=== PATIENT | female | born 1990 | race Hispanic/Latino ===

== ENCOUNTER 2019-06-12 12:30 | Observation (INO) | payer OTHER, SELFPAY ==
[2019-06-12] VITALS (14 sets, daily range): BP systolic 118–132; BP diastolic 65–76; PULSE 62–107; O2SAT 99–100; BMI 35.4
[2019-06-12 13:32] LABS: Add Urine Microscopic? YES; Appearance Urine Clear (Clear); Bacteria Urine 2+ /hpf; Bilirubin Urine Negative (Negative); Blood Urine Negative (Negative); Color Urine Straw (Yellow); Glucose Urine UA Negative (Negative); Ketones Urine Negative (Negative); Leukocyte Esterase Ur 2+ LEU/UL (Negative); Mucus Urine Rare /lpf; Nitrate Urine Negative (Negative); Protein Urine Negative (Negative); RBC Urine 0-2 /hpf (0-2); Squamous Epithelial Cell Urine Few /hpf (Few); Urobilinogen Urine Negative mg/dL (<2.0); WBC Urine 0-3 /hpf
[2019-06-12] MEDS: TERBUTALINE SULFATE 1 MG/ML VIAL 0.25 MG SUB-Q (13:50)
--- NOTE | 2019-06-12 14:20 | OBADM ---
This patient, Destinee Alexander, admitted to the OB room OB Post 113 for observation. Patient/family oriented to hospital policies and general routines including ID bracelet, bed and alarms, visiting hours, pain management, procedures, bathroom and other care routines, personal items, smoking policy, room service/diet, and visiting hours. Patient/Family are encouraged to report perceived risks to care and to ask questions if they do not understand what they are told or what they should do.
--- NOTE | 2019-06-23 09:28 | PM.OBTRLD ---
OB - Triage/Final Diagnosis Visit Information Reason for evaluation: other (back pain) Evaluation Laboratory results: Laboratory Tests 06/12/19 13:23 Urine Color Straw Urine Appearance Clear Urine pH 7.0 Ur Specific [place] 1.010 Urine Protein Negative Urine Glucose (UA) Negative Urine Ketones Negative Ur Blood (Man) Negative Urine Nitrate Negative Urine Bilirubin Negative Urine Urobilinogen Negative Leukocyte Esterase Rfl 2+ H Urine RBC 0-2 Urine WBC 0-3 Ur Squamous Epith Cells Few Urine Bacteria 2+ H Urine Mucus Rare
== END 2019-06-12 14:55 | disposition home or self-care (01) ==
PROVIDERS: Admitting Provider Obstetrics & Gynecology Gynecology; Visit Provider Obstetrics & Gynecology Gynecology
DX: O99.89 Other specified diseases and conditions complicating pregnancy, childbirth and the puerperium (principal); M54.9 Dorsalgia, unspecified; Z3A.34 34 weeks gestation of pregnancy
CPT/HCPCS: 81001; 96372; G0378; G0379; J3105

== ENCOUNTER 2019-07-07 09:37 | Inpatient (IN) | payer OTHER, SELFPAY ==
[2019-06-23 14:35] VITALS: BMI 35.7
[2019-07-07] VITALS (63 sets, daily range): BP systolic 119–158; BP diastolic 58–96; PULSE 60–88; RESP 18; TEMP 36.6–37.1; O2SAT 99–100
[2019-07-07 10:12] LABS: Basophils Percent Auto 0.5 % (0.2-1.2); Eosinophils Absolute Auto 0.1 K/mm3 (0-0.3); Eosinophils Percent Auto 0.8 % (0-4.4); Hemoglobin 13.2 g/dL (12.0-15.0); Immature Granulocyte Absolute 0.03 K/mm3 (0.00-0.031); Immature Granulocyte Percent A 0.3 % (0-0.5); Lymphocytes Absolute Auto 2.05 K/mm3 (0.9-3.2); Lymphocytes Percent Auto 23.3 % (18.3-44.2); Mean Corpuscular HGB Conc 33.8 g/dl (32-36); Mean Corpuscular Hemoglobin 29.5 pg (26-34); Mean Corpuscular Volume 87.2 fl (80-100); Mean Platelet Volume 11.6 fl (7.4-10.4); Monocytes Absolute Auto 0.6 K/mm3 (0.1-0.6); Monocytes Percent Auto 6.9 % (2.6-8.5); Neutrophils Percent Auto 68.2 % (45.5-73.1); Platelet Count Result 245 k/mm3 (150-375); Red Blood Count 4.47 M/mm3 (4.2-5.4); Red Cell Distribution Width 13.3 % (11.5-14.5); White Blood Count 8.8 K/mm3 (4.5-10.0)
[2019-07-07] MEDS: OXYTOCIN 30 UNITS/NS 500 ML 30 UNITS/500 ML BAG IV CONT (11:02)
[2019-07-07] MEDS: LACTATED RINGERS 1,000 ML 125 ML IV CONT ×2 (11:02→15:05)
--- NOTE | 2019-07-07 11:19 | LDADM ---
This patient, Destinee Alexander, was admitted to Labor/Delivery/Recovery 106 on 07/07/19 at 09:37. Plans for labor, pain management and were discussed with patient. Patient/family oriented to hospital policies and general routines including ID bracelet, bed and alarms, visiting hours, pain management, procedures, bathroom and other care routines, personal items, smoking policy, room service/diet and guest tray routines, security routines, and visiting hours. Patient/Family are encouraged to report perceived risks to care and to ask questions if they do not understand what they are told or what they should do. See OBIX for further documentation.
--- NOTE | 2019-07-07 15:16 | WPDANESEPPF ---
Anes - Initial Pre Proc Eval Date/Time: 07/07/19 15:16 Surgeon: Gogo Miranda MD Pre Op Diagnosis: Rupture of membrane Patient Data Age: 28 Gender: F Height: 5 ft Weight: 83 kg Last Vital Signs Temp 36.9 C 07/07/19 14:58 Pulse 65 07/07/19 15:15 BP 140/78 07/07/19 15:15 Pulse Ox 100 07/07/19 15:13 Allergies Allergy/AdvReac Type Severity Reaction Status Date / Time No Known Allergies Allergy Unverified 01/09/19 00:35 Home Medications Medication Instructions Recorded Confirmed Type PNV cmb#95-ferrous fumarate-FA 1 tablet PO DAILY 06/12/19 06/23/19 History [] ergocalciferol (vitamin D2) 1 unit PO USEASDIRECTD 3 Days #0 06/12/19 06/23/19 Rx [Vitamin D2] cap Laboratory Tests 07/07/19 07/07/19 07/07/19 10:00 10:00 10:00 WBC 8.8 K/mm3 K/mm3 (4.5-10.0) RBC 4.47 M/mm3 M/mm3 (4.2-5.4) Hgb 13.2 g/dL g/dL (12.0-15.0) Hct 39.0 % % (37.0-47.0) MCV 87.2 fl fl (80-100) MCH 29.5 pg pg (26-34) MCHC 33.8 g/dl g/dl (32-36) RDW 13.3 % % (11.5-14.5) Plt Count 245 k/mm3 k/mm3 (150-375) MPV 11.6 fl H fl (7.4-10.4) Immature Gran % (Auto) 0.3 % % (0-0.5) Neut % (Auto) 68.2 % % (45.5-73.1) Lymph % (Auto) 23.3 % % (18.3-44.2) [place] % (Auto) 6.9 % % (2.6-8.5) Eos % (Auto) 0.8 % % (0-4.4) Baso % (Auto) 0.5 % % (0.2-1.2) Lymph # (Auto) 2.05 K/mm3 K/mm3 (0.9-3.2) [place] # (Auto) 0.6 K/mm3 K/mm3 (0.1-0.6) Eos # (Auto) 0.1 K/mm3 K/mm3 (0-0.3) Baso # (Auto) 0.0 K/mm3 K/mm3 (0.0-0.1) Abs Immat Gran (auto) 0.03 K/mm3 K/mm3 (0.00-0.031) Absolute Neuts (auto) 6.0 K/mm3 K/mm3 (1.3-6.7) Absolute Nucleated RBC 0.0 K/mm3 K/mm3 (0.0-0.012) Nucleated RBC % 0.0 % % (0.0-0.2) RPR Pending Blood Type O Positive Antibody Screen Negative Patient hx anesthesia problems: none Family hx anesthesia problems: none PMFSH Family History Family History Grandparent Acute myocardial infarction Mother Diabetes mellitus Social History Social History Smoking status: Never smoker Substance use: never Gender identity (if verbalized by the patient): Female Spiritual care concerns: No Anes - Eval Final PreProcedure Day of Procedure 07/07/19 15:16 Patient weight: obese Heart: regular rate and rhythm Lungs: clear to auscultation Neurological: alert and oriented ASA classification: II Emergent: no Anesthetic plan: proceed Anesthesia type and monitoring: regional epidural and standard monitoring Informed Consent: The patient's anesthetic plan and its attendant risks and benefits were discussed with the patient/family/POA. Questions were solicited and answers provided to the satisfaction of the patient/family/POA.
--- NOTE | 2019-07-07 18:18 | PM.OBPRVD ---
OB - Delivery Note Procedure events: Labor Augmentation Intrapartal events: None Delivery augmentation: pitocin Delivery monitor: external FHT and external uterine Route of delivery: Laceration description: None Specimen: No Estimated blood loss (mL): 200 Anesthesia type: Epidural Disposition: floor [place] Baby Date of : 07/07/19 Time of : 18:08 Weeks of gestation at delivery: 38 gender: Female Weight (pounds): 6 Weight (ounces): 8 presentation: vertex position: Left Occiput Anterior Placenta delivery description: Spontaneous cord vessel description: 3 Vessels score one minute: 8 score five minutes: 9
[2019-07-07] MEDS: OXYTOCIN 30 UNITS/NS 500 ML 30 UNITS/500 ML BAG 125 UNITS IV CONT (18:39)
[2019-07-07] MEDS: IBUPROFEN 600 MG TABLET PO (20:17)
--- NOTE | 2019-07-07 20:32 | PC.NURSE ---
Patient transferred in wheelchair to post room 292. Support person present. Oriented to unit, room, information board, rooming in, admission packet and security measures. Patient verbalizes understanding.
[2019-07-07] MEDS: ACETAMINOPHEN 325 MG TABLET 650 MG PO (21:20)
[2019-07-08 05:07] LABS: Hematocrit 32.4 % (37.0-47.0); Hemoglobin 10.9 g/dL (12.0-15.0)
--- NOTE | 2019-07-08 06:44 | WPDOBADMIT ---
Obstetrics - Admit Note Admission Note: record reviewed. No pertinent additions to the history and/or any subsequent changes in the physical findings that are not consistent with the expected course of the were found. Additions to the history and/or subsequent changes in the physical findings follow. Patient admitted 07/06 with SROM. She was augmented and progressed to 5-6 cm. At approx 5 pm, I saw the patient at request of RN due to run of late decels that required the pitocin to be temporarily stopped but noted to have large BBOW. I AROM the forebag. FHTs at that time were reactive and the pitocin had been restarted. The patient care was then turned over to Dr. Fuentes for call night. Patient aware that Dr. Fuentes was taking over.
--- NOTE | 2019-07-08 07:48 | PM.OBPNVD ---
OB - PN: Subj Subjective Date/time seen: 07/08/19 07:48 Patient comments: no complaints and pain well controlled baby status: doing well OB - PN: Obj Data Labs CBC & Chem 7: 07/08/19 04:59 Labs: Laboratory Results - last 24 hr 07/07/19 07/07/19 07/08/19 10:00 10:00 04:59 WBC 8.8 RBC 4.47 Hgb 13.2 10.9 L Hct 39.0 32.4 L MCV 87.2 MCH 29.5 MCHC 33.8 RDW 13.3 Plt Count 245 MPV 11.6 H Immature Gran % (Auto) 0.3 Neut % (Auto) 68.2 Lymph % (Auto) 23.3 [place] % (Auto) 6.9 Eos % (Auto) 0.8 Baso % (Auto) 0.5 Lymph # (Auto) 2.05 [place] # (Auto) 0.6 Eos # (Auto) 0.1 Baso # (Auto) 0.0 Abs Immat Gran (auto) 0.03 Absolute Neuts (auto) 6.0 Absolute Nucleated RBC 0.0 Nucleated RBC % 0.0 Blood Type O Positive Antibody Screen Negative OB - PN A/P Plan day: 1 Plan: routine care, discharge home and follow up 6 weeks Comments: plan pop Time Spent With Patient Time: Total time spent is greater than 50% in coordination of care (as documented) at patient's floor/unit and/or counseling patient: Exam : Bimanual exam- vagina & uterus: other (Uterus firm, nt @U)
[2019-07-08 08:25] VITALS: BP 115/61; PULSE 63; RESP 18; TEMP 37.1; O2SAT 99
--- NOTE | 2019-07-08 08:47 | WPDANLDPN2 ---
Anes-Prog Note L&D Date/Time: 07/08/19 08:47 Comfortable throughout: labor and delivery Neuraxial method: epidural Epidural/Spinal procedure site: clean & non-tender Neuro status: Neuro function grossly intact. Cardiovascular status: normal Respiratory status: normal Airway patency: baseline Mental status: baseline Post-Op hydration status: normal Vital Signs: Last Vital Signs Temp 37.1 C 07/07/19 20:40 Pulse 65 07/07/19 20:40 Resp 18 07/07/19 20:40 BP 132/79 07/07/19 20:40 Pulse Ox 99 07/07/19 20:40 I/O: Intake & Output 07/07/19 07/08/19 07/08/19 23:59 07:59 15:59 Intake Total 500 Balance 500 Patient feedback: Patient satisfied with anesthetic care.
[2019-07-08] MEDS: ACETAMINOPHEN 325 MG TABLET 650 MG PO ×2 (09:06→18:01)
[2019-07-08] MEDS: MULTIVIT/MIN/PREN/FOL AC/IRON TABLET 1 TAB PO (09:06)
[2019-07-08] MEDS: DOCUSATE SODIUM 100 MG CAPSULE PO (09:06)
--- NOTE | 2019-07-08 09:15 | PC.NURSE ---
Consulted with patient, mother reports she breast/bottle fed last child. She plans are to breastfeed/bottle this child. Reviewed infant feeding cues, frequencies, duration of feedings, feeding elimination flow sheet, and signs of adequate intake. Demonstrated stimulation techniques to wake infant for feeding. Assisted with infant to breast. Reviewed positioning/alignment in cross cradle, holding breast in U hold and guided asymmetrical latch on. Discussed the rational for each. Within a few attempts was able to latch correctly. Infant nursed eagerly, with steady draws and frequent swallowing noted. Reviewed signs of a correct latch, effective nursing and suck swallow ratio. Infant was able to maintain latch without discomfort to mother. Nipple care reviewed. Stressed the importance of regular stimulation for milk supply, suggested to put to breast each feeding then supplement. Once milk is in should be satisfied with milk supply and take less of bottle then refuse, filling with breast. Mother states she wishes to not breastfeed at times and bottle, suggested to pump to replace stimulation and empty breast. Reviewed adequate signs of breastmilk intake. Instructed mother to call out for RN assistance if she is unable to latch infant for feeding or she has discomfort with nursing. Instructed feeding should be initiated three hours from start of last feeding or if feeding cues are noted before. Mother voiced understanding of information shared.
[2019-07-08 16:06] LABS: Rapid Plasma Reagin Non-Reactive (NonReactive)
[2019-07-08] MEDS: DIBUCAINE 1% OINTMENT 30 GM TUBE 1 APPLIC TOPICAL (16:13)
[2019-07-09 10:35] VITALS: BP 125/70; PULSE 57; RESP 20; TEMP 36.9
--- NOTE | 2019-08-04 10:29 | PM.OBDSVD ---
DS: Diagnosis Admitting Diagnosis Admitting Diagnosis: Encounter for supervision of normal , unspecified, third trimester Discharge Diagnosis (1) (normal spontaneous vaginal delivery): Code(s): O80 - Encounter for full-term uncomplicated delivery Status: Acute OB - DS: Summary OB Procedures : Ultrasound OB Procedures Intrapartum: Spontaneous Vag Delivery OB Procedures: : None Peripartum Data Delivery Method: Natural Vaginal Laceration description: Perineal - 1st Degree Status at Discharge Functional status at discharge: independent ambulation Overall status at discharge: patient is progressing back to baseline Time Spent with Patient Time attestation: Total time spent providing and/or coordinating discharge services: Exam Const: Orientation/consciousness: patient oriented x3 GI: GI Palp: Yes Soft to palpation Discharge Plan Discharge Attending physician on discharge: Keith Fuentes Consulting providers: Kaushal Martinez Discharging Clinician: Gogo Miranda Anticipated Discharge Date/Time: 07/08/19 19:49 Patient Disposition: Home, Self-Care Activity: may shower and pelvic rest Diet: regular Discharge Instructions: Education: Mom and Baby Guide Given to: Mother Follow-Up: Call your delivering provider's office for an appointment to be seen in: 6 Weeks Mom and baby should come to the [facility] for the follow-up appointment. Appointment Date/Time: July 09, 2019 at 11:00 am What to expect at your follow-up visit: Blood Pressure Check Physical Assessment Call [phone] if you are unable to keep your appointment time. BREAST CARE: 1. Wear a snug supportive bra. 2. For engorgement discomfort: Breast Feeding: A. Apply warm moist washcloths B. Express milk as needed to relieve engorgement C. Wear loose clothing Bottle Feeding: A. May apply ice packs 3. For sore nipples: A. Identify correct latch-on B. Apply warm moist washcloths before and after nursing C. Air dry nipples after nursing D. May apply Lansinoh cream to nipples PERINEAL CARE: 1. Until bleeding stops, use your boaz bottle after urinating 2. Change your pad frequently throughout the day 3. You may take sitz baths several times a day (fill your bathtub with warm water and soak for 20 minutes.) Do NOT bathe in the water 4. No tub baths until seen by your physician - You may shower ACTIVITY: 1. Rest as much as possible. 2. Do not exercise or lift anything heavier than your baby (such as laundry or other children.) 3. Avoid stairs or driving as much as possible. 4. Do not put anything into the vagina. No douching, tampons, or sexual activity until seen by physician. NOTIFY PHYSICIAN IF YOU HAVE ANY QUESTIONS OR IF ANY OF THE FOLLOWING SYMPTOMS OCCUR: 1. If your perineum becomes red, swollen, or more painful than what you have experienced in the hospital. 2. If your vaginal bleeding becomes foul smelling. 3. If your vaginal bleeding becomes more heavy than a period or if your bleeding changes from pink to bright red. However, you may pass an occasional walnut-sized clot once or twice for the first week . 4. If you experience a sharp, shooting pain in your calves. 5. If you discover a hard, reddened area on your breast or if you experience flu-like symptoms. DIET: 1. Eat regular, well-balanced meals. 2. Drink plenty of fluids daily. If , drink to thirst. Stand Alone Forms: General Discharge Information Follow-up/Referrals: Gogo Miranda MD [Physician] - 6 Weeks Discharge Medications: New norethindrone (contraceptive) 0.35 mg tablet 0.35 mg PO DAILY Qty: 84 RF: 3 Continued PNV cmb#95-ferrous fumarate-FA [] 28 mg iron- 800 mcg Tablet 1 tablet PO DAILY RF: 0 ergocalciferol (vitamin
== END 2019-07-08 19:23 | disposition home or self-care (01) | DRG 560 ==
LOC: ANHLDR 15:11 → ANHOB2 22:00
PROVIDERS: Obstetrics & Gynecology; Admitting Provider Obstetrics & Gynecology Gynecology; Visit Provider Obstetrics & Gynecology Gynecology
DX: O99.214 Obesity complicating childbirth (principal); Z37.0 Single live birth; Z3A.38 38 weeks gestation of pregnancy; O36.8330 Maternal care for abnormalities of the fetal heart rate or rhythm, third trimester, not applicable or unspecified; O69.81X0 Labor and delivery complicated by cord around neck, without compression, not applicable or unspecified; E66.9 Obesity, unspecified
CPT/HCPCS: 36415; 85014; 85018; 85025; 86592; 86850; 86900; 86901; A9270; J2590; J2795; J7120

== ENCOUNTER 2020-06-06 08:53 | Outpatient (CLI) | payer OTHER, SELFPAY ==
--- NOTE | ~2020-06-06 | US_ITS ---
EXAMINATION: US pelvic complete w TV EXAM DATE: 06/06/2020 09:32 INDICATION: Abnormal uterine bleeding. TECHNIQUE: Pelvic transabdominal and transvaginal sonogram was performed. There are multiple graysca le and Doppler images available for interpretation. There is no prior study for comparison. FINDINGS: Uterus measures 9.4 x 5.7 x 6.1 cm, is retroverted and morphologically normal. Endometria l stripe measures 13 mm, within normal limits. There is trace fluid in the endometrial canal. There i s a nabothian cyst. There is small to moderate free pelvic fluid, probably from recently ruptured cy st. Right adnexa: The ovary measures 4.5 x 2.0 x 2.6 cm and is morphologically normal. Ovarian vascular f low confirmed. Left adnexa: 3.8 x 2.1 x 2.6 IMPRESSION: 1. Unremarkable pelvic ultrasound exam. Reviewed, dictated and finalized at location A. LD RUNNER
== END 2020-06-06 08:54 | disposition home or self-care (01) ==
LOC: ANHIMG 09:07
PROVIDERS: PCP Physician Assistant; Visit Provider Nurse Practitioner
DX: N93.9 Abnormal uterine and vaginal bleeding, unspecified (principal)
CPT/HCPCS: 76830; 76856

== ENCOUNTER 2020-08-07 02:40 | Emergency (ER) | payer OTHER, SELFPAY ==
--- NOTE | ~2020-08-07 | CT_ITS ---
EXAMINATION: CT cervical spine wo con DATE: 08/07/2020 03:26 INDICATION: Cervical radiculopathy. TECHNIQUE: Computed tomography (CT) of the cervical spine was performed without intravenous contrast. Automated exposure control and iterative reconstruction technique were employed. The dose-length pro duct was 415.93 mGy-cm. COMPARISON: None FINDINGS: There is 7 degrees levocurvature of cervical spine. Vertebral body heights and intervertebr al disc heights are normal. At C7-T1, there is mild bilateral facet joint osteoarthritis. No neural f oraminal stenosis or central canal stenosis. IMPRESSION: 1. 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 Reviewed, dictated and finalized at location A.
[2020-08-07 02:42] VITALS: BP 151/72; PULSE 76; RESP 18; TEMP 36.4; O2SAT 100
[2020-08-07] MEDS: IBUPROFEN 400 MG TABLET 800 MG PO (03:52)
--- NOTE | 2020-08-07 04:47 | ED.GENADULT ---
HPI - General Adult General Chief complaint: Extremity Injury, Upper Stated complaint: left arm pain Time Seen by Provider: 08/07/20 03:33 History of Present Illness HPI narrative: Patient a 29-year-old female presents to emergency department with chief complaint of left upper extremity pain. Patient reports that she fell asleep and that when she woke up she had pain in her left thumb index finger and half of her middle finger. The patient states the pain radiates up to her elbow and then up her arm to her neck. Patient states the pain is worse with movement and improved with rest. Related Data Allergies Allergy/AdvReac Type Severity Reaction Status Date / Time No Known Allergies Allergy Verified 08/07/20 02:59 Review of Systems Review of Systems: Narrative: A 10 system review of systems was completed on the patient and is negative except for what is stated in the HPI. Nursing and ancillary documentation was reviewed. [facility] Past Medical History Medical History (normal spontaneous vaginal delivery) Family History Family History Grandparent Acute myocardial infarction Mother Diabetes mellitus Social History Social History Smoking status: Never smoker Substance use: never Gender identity (if verbalized by the patient): Female Spiritual care concerns: No Exam Narrative: Exam Narrative: GENERAL: Well-appearing, well-nourished, and in no acute distress. HEAD: Normocephalic, atraumatic. EYES: PERRLA and EOMI. ENT: Nares clear, no rhinorrhea or epistaxis. Mucous membranes moist. NECK: Supple. CHEST: Clear to auscultation. No respiratory distress. HEART: Regular rate and rhythm. No murmur heard. Normal peripheral pulses. ABDOMEN: Soft, nontender, nondistended, normal active bowel sounds. EXTREMITIES: Normal range of motion. No edema. 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 SKIN: Warm, dry, no rash. NEURO: No focal deficits. Alert and oriented x3. PSYCH: Normal mood and affect. Course Course Emergency Course: CT C-spine is within normal limits Vital Signs Vital signs: Vital Signs Temperature 36.4 C L 08/07/20 02:42 Pulse Rate 76 08/07/20 02:42 Respiratory Rate 18 08/07/20 02:42 Blood Pressure 151/72 H 08/07/20 02:42 Pulse Oximetry 100 08/07/20 02:42 Temperature 36.4 C L 08/07/20 02:42 Pulse Rate 76 08/07/20 02:42 Respiratory Rate 18 08/07/20 02:42 Blood Pressure 151/72 H 08/07/20 02:42 Pulse Oximetry 100 08/07/20 02:42 Medical Decision Making Vital Signs Vital Signs: Vital Signs Temperature 36.4 C L 08/07/20 02:42 Pulse Rate 76 08/07/20 02:42 Respiratory Rate 18 08/07/20 02:42 Blood Pressure 151/72 H 08/07/20 02:42 Pulse Oximetry 100 08/07/20 02:42 Temperature 36.4 C L 08/07/20 02:42 Pulse Rate 76 08/07/20 02:42 Respiratory Rate 18 08/07/20 02:42 Blood Pressure 151/72 H 08/07/20 02:42 Pulse Oximetry 100 08/07/20 02:42 Lab Data Labs: UCG Bedside Result Negative Reference Range: Negative Discharge Plan Discharge Clinical Impression: Radiculopathy affecting upper extremity Patient Disposition: Home, Self-Care Condition: Stable Instructions: Antibiotic Form, Peripheral Neuropathy (ED), Cervical Radiculopathy (ED) Prescriptions: New ibuprofen 800 mg tablet 800 mg PO TID PRN (Reason: pain) Qty: 21 RF: 0 No Action norethindrone (contraceptive) 0.35 mg tablet 0.35 mg PO DAILY Qty: 84 RF: 3 Follow-up/Referrals: Lorna,DANAY Mccormack [Primary Care Provider] - Time of Disposition: 04:50
[2020-08-07 04:57] VITALS: BP 136/72; PULSE 70; RESP 16; O2SAT 99
== END 2020-08-07 04:57 | disposition home or self-care (01) ==
PROVIDERS: Emergency Provider Emergency Medicine; PCP Physician Assistant
DX: M54.10 Radiculopathy, site unspecified (principal)
CPT/HCPCS: 72125; 81025; 99284; A9270

== ENCOUNTER 2020-11-16 14:00 | Outpatient (RCR) | payer OTHER, SELFPAY ==
--- NOTE | 2020-10-11 08:39 | PTOPEVAL ---
PHYSICAL THERAPY EVALUATION AND PLAN OF CARE Thank you for referring Destinee Valadez to [facility].? The patient is scheduled to be seen for therapy?1x/week for 4 weeks. Please review, sign, date and return this plan of care JEANMARIE. I agree with and certify that the following plan of care is medically necessary. Referring Physician Date Attending Provider: Liseth Rothman, PA Evaluation Diagnosis left shoulder pain; arm pain Onset 07/2020 Subjective Information Destinee reports that she woke up Query Text:As Reported By Patient/ one morning and her whole Family left arm was hurting and numb. She went to the ER and they did a CT. The CT scan shows OA of C7-T1 in facet joints. Does not happen every day, but when it does the pain goes down the back of the left arm and to the ring finger. Will happen when she sleeps and will occur when lifting heavy things. Self Report Pain Assessment Left Arm(s) Reported Pain Level 0 Pain Score Pain Score 0: Self Report Additional Pain Score Comments reports that upper back is kind of hurting Interventions Used Interventions Used By Clinicians Exercise,Joint Mobilization Cervical and Lumbar ROM Cervical ROM Cervical Flexion (0-60) 50 Query Text:Active in Degrees Cervical Extension (0-70) 50 Query Text:Active in Degrees Cervical Rotation Right (0-90) 55 Query Text:Active in Degrees Cervical Rotation Left (0-90) 62 Query Text:Active in Degrees Cervical ROM Comments pain on left with left rotation Upper Extremity Range of Motion General Upper Extremity Range of Motion Reason Not Measured WNL/Left,WNL/Right Upper Extremity Muscle Strength Testing Scapular/Shoulder Right Shoulder Flexion Strength 4+ Good + Shoulder Abduction Strength 5 Normal Shoulder Medial Rotation Strength 5 Normal Shoulder Lateral Rotation Strength 4+ Good + Left Shoulder Flexion Strength 4- Good - Shoulder Abduction Strength 4 Good Shoulder Medial Rotation Strength 4 Good Shoulder Lateral Rotation Strength 4- Good - Muscle Length Testing Muscle Length Testing Upper Trapezius Muscle Length (R) Severe Tightness,(L) Severe Tightness Pectoralis Major Muscle Length (R) Severe Tightness,(L) Severe Tightness Pectoralis Major- Sternal Fibers Muscle (R) Moderate Tightness,(L) Length Moderate Tightness Posture Posture Sitt
--- NOTE | 2020-10-25 09:28 | PCPTNOTE ---
Patient called & cancelled scheduled appointment this date due to being sick.
--- NOTE | 2020-11-09 10:33 | PCPTNOTE ---
Patient called & cancelled scheduled appointment this date due to personal reasons.
--- NOTE | 2020-11-16 14:21 | PTOPEVAL ---
PHYSICAL THERAPY DISCHARGE NOTE Thank you for referring Destinee Valadez to [facility].? Please review, sign, date and return this plan of care JEANMARIE. I agree with and certify that the following plan of care is medically necessary. Referring Physician Date Attending Provider: Liseth Rothman, PA Discharge Diagnosis left shoulder pain; arm pain Onset 07/2020 Subjective Information reports no pain or numbness in Query Text:As Reported By Patient/ the left arm. She states Family that there was some stiffness in her right side of her neck but thinks that is from carrying her little one. Self Report Pain Assessment Left Arm(s) Reported Pain Level 0 Pain Score Pain Score 0: Self Report Additional Pain Score Comments reports that upper back is kind of hurting Interventions Used Interventions Used By Clinicians Exercise,Joint Mobilization Cervical and Lumbar ROM Cervical ROM Cervical Flexion (0-60) 60 Query Text:Active in Degrees Cervical Extension (0-70) 50 Query Text:Active in Degrees Cervical Rotation Right (0-90) 75 Query Text:Active in Degrees Cervical Rotation Left (0-90) 75 Query Text:Active in Degrees Cervical ROM Comments no pain with rotation Upper Extremity Range of Motion General Upper Extremity Range of Motion Reason Not Measured WNL/Left,WNL/Right Upper Extremity Muscle Strength Testing Scapular/Shoulder Right Shoulder Flexion Strength 5 Normal Shoulder Abduction Strength 5 Normal Shoulder Medial Rotation Strength 5 Normal Shoulder Lateral Rotation Strength 5 Normal Left Shoulder Flexion Strength 5 Normal Shoulder Extension Strength 5 Normal Shoulder Abduction Strength 5 Normal Shoulder Medial Rotation Strength 5 Normal Shoulder Lateral Rotation Strength 5 Normal Muscle Length Testing Muscle Length Testing Upper Trapezius Muscle Length (R) Mild Tightness,(L) Mild Tightness Pectoralis Major Muscle Length (R) Moderate Tightness,(L) Moderate Tightness Pectoralis Major- Sternal Fibers Muscle (R) Mild Tightness,(L) Mild Length Tightness Posture Posture Sitting Position Head/C-Spine Posture Neutral Position Thorax Posture Neutral Lumbar Spine Posture Neutral Shoulder Posture (L) Rounded,(R) Rounded,(L) Forward,(R) Forward Scapula Posture (L) Protracted,(R) Protracted Palpation significantly improved tissue quality of upper trapezius General Exercise General Exercises
== END 2020-12-27 13:04 | disposition home or self-care (01) ==
LOC: ANHPT 14:00
PROVIDERS: PCP Physician Assistant; Visit Provider Physician Assistant
DX: M25.519 Pain in unspecified shoulder (principal)
CPT/HCPCS: 97110; 97140; 97161

== ENCOUNTER 2020-12-04 03:16 | Emergency (ER) | payer OTHER, SELFPAY ==
[2020-12-04] VITALS (9 sets, daily range): BP systolic 108–123; BP diastolic 59–75; PULSE 60–78; RESP 11–16; TEMP 36.7; O2SAT 97–100
--- NOTE | ~2020-12-04 | XR_ITS ---
XR chest 2V DATE: 12/04/2020 03:53 INDICATION: Lower chest tightness, sternal chest pain TECHNIQUE: PA and lateral views COMPARISON: None FINDINGS: Normal heart size. No hilar or mediastinal enlargement. No pulmonary infiltrate or consolid ation, pleural effusion or pulmonary vascular congestion or pneumothorax. IMPRESSION: Negative chest Reviewed, dictated and finalized at location A. IMPRESSION: Negative chest
--- NOTE | 2020-12-04 03:17 | ECG_ITS ---
Measurements Intervals [place] Rate: 64 P: 14 RI: 142 QRS: 11 QRSD: 85 T: 7 QT: 371 QTc: 383 Interpretive Statements SINUS RHYTHM EARLY PRECORDIAL R/S TRANSITION BORDERLINE T WAVE ABNORMALITY- INFERIOR LEADS BASELINE ARTIFACT- V4 BORDERLINE ECG Electronically Signed On 12-05-2020 13:19:50 CDT by Car Griggs D.O.
[2020-12-04 03:55] LABS: Basophils Absolute Auto 0.1 K/mm3 (0.0-0.1); Basophils Percent Auto 0.7 % (0.2-1.2); Eosinophils Absolute Auto 0.1 K/mm3 (0-0.3); Eosinophils Percent Auto 1.2 % (0-4.4); Hemoglobin 13.7 g/dL (12.0-15.0); Immature Granulocyte Absolute 0.02 K/mm3 (0.00-0.031); Immature Granulocyte Percent A 0.2 % (0-0.5); Lymphocytes Absolute Auto 2.96 K/mm3 (0.9-3.2); Lymphocytes Percent Auto 35.5 % (18.3-44.2); Mean Corpuscular HGB Conc 32.6 g/dl (32-36); Mean Corpuscular Hemoglobin 29.7 pg (26-34); Mean Corpuscular Volume 91.1 fl (80-100); Mean Platelet Volume 10.7 fl (7.4-10.4); Monocytes Absolute Auto 0.5 K/mm3 (0.1-0.6); Monocytes Percent Auto 6.2 % (2.6-8.5); Neutrophils Absolute Auto 4.7 K/mm3 (1.3-6.7); Neutrophils Percent Auto 56.2 % (45.5-73.1); Platelet Count Result 98 k/mm3 (150-375); Red Blood Count 4.61 M/mm3 (4.2-5.4); Red Cell Distribution Width 12.3 % (11.5-14.5); White Blood Count 8.3 K/mm3 (4.5-10.0)
--- NOTE | 2020-12-04 04:16 | PC.NURSE ---
pt states she is not in pain and does not want the toradol at this time.
[2020-12-04 04:26] LABS: Anion Gap 12 mmol/L (8-16); Blood Urea Nitrogen 12 mg/dL (7-17); Calcium 10.1 mg/dL (8.4-10.2); Carbon Dioxide 22 mmol/L (22-30); Chloride 102 mmol/L (98-107); Estimated CRCL calculation 98 ml/min; Estimated Glomerular Filt Rate > 60; Glucose 106 mg/dL (65-110); Potassium 4.1 mmol/L (3.4-5.0); Sodium 136 mmol/L (137-145)
[2020-12-04 04:27] LABS: INR 0.8; Prothrombin Time 11.5 Seconds (11.1-14.7)
[2020-12-04 04:28] LABS: Partial Thromboplastin Time 32.9 SECONDS (22.3-36.8)
[2020-12-04 04:38] LABS: Troponin I < 0.012 ng/mL (0.000-0.034)
[2020-12-04 04:47] LABS: Alanine Aminotransferase 15 U/L (4-35); Alkaline Phosphatase 90 U/L (38-126); Aspartate Amino Transferase 24 U/L (14-36); Bilirubin,Total 0.2 mg/dL (0.2-1.3); Lipase 98 U/L (23-300)
--- NOTE | 2020-12-04 05:32 | ED.GENADULT ---
HPI - General Adult General Chief complaint: Chest Pain Stated complaint: chest pain Time Seen by Provider: 12/04/20 03:23 History of Present Illness HPI narrative: Patient is a 30-year-old female who presents ER with sudden onset epigastric and right upper quadrant pain. Radiates to right shoulder and back. Associated with feeling in her chest that she is full. No fevers or chills or sweats. Mild nausea without vomiting. Has had the symptoms once previously. Unable to identify aggravating or alleviating factors. No previous history of gallstone. She does have a family history of gallstones. Related Data Allergies Allergy/AdvReac Type Severity Reaction Status Date / Time No Known Allergies Allergy Verified 12/04/20 03:29 Review of Systems Review of Systems: All systems reviewed & are unremarkable except as noted in HPI and below Constitutional: Constitutional: Denies chills, Denies fever(s) and Denies weakness ENT: Denies nasal congestion and Denies sore throat Cardiovascular: Cardiovascular: Reports chest pain, Denies rapid heart rate and Denies radiating jaw, neck or arm pain Gastrointestinal: Gastrointestinal: Reports abdominal pain, Reports bloating, Denies constipation, Denies diarrhea, Reports nausea and Denies vomiting Genitourinary: Genitourinary: Denies nocturia, Denies dysuria and Denies flank pain PMFSH Past Medical History Medical History (Updated 12/04/20 @ 05:38 by Anmol Martinez MD) (normal spontaneous vaginal delivery) Surgical History Surgical History (Updated 12/04/20 @ 05:33 by Anmol Martinez MD) No pertinent past surgical history Family History Family History Grandparent Acute myocardial infarction Mother Diabetes mellitus Social History Social History Smoking status: Never smoker Substance use: never Gender identity (if verbalized by the patient): Female Spiritual care concerns: No Exam Narrative: GENERAL: Well-appearing, well-nourished, and in no acute distress. HEAD: Normocephalic, atraumatic. ENT: Mucous membranes moist. CHEST: Clear to auscultation. No respiratory distress. HEART: Regular rate and rhythm. Normal peripheral pulses. ABDOMEN: Soft, mild right upper quadrant tenderness without guarding, nondistended, normal active bowel sounds. EXTREMITIES: Normal range of motion. No edema. SKIN: Warm, dry, no rash. NEURO: Alert and oriented x3. Course Course Emergency Course: Patient resting comfortably. Suspect biliary colic. Recommend outpatient ultrasound through PCP. Patient verbalized understanding. No pain at this time. We will give small supply of antiemetics and pain medication in case she has recurrence of pain. Vital Signs Vital signs: Vital Signs Temperature 98.1 F 12/04/20 03:25 Pulse Rate 69 12/04/20 03:25 Respiratory Rate 14 12/04/20 03:25 Blood Pressure 123/75 12/04/20 03:25 Pulse Oximetry 100 12/04/20 03:25 Temperature 98.1 F 12/04/20 03:25 Pulse Rate 68 12/04/20 04:01 Respiratory Rate 11 L 12/04/20 04:01 Blood Pressure 108/66 12/04/20 04:01 Pulse Oximetry 100 12/04/20 04:18 Medical Decision Making Vital Signs Vital Signs: Vital Signs Temperature 98.1 F 12/04/20 03:25 Pulse Rate 69 12/04/20 03:25 Respiratory Rate 14 12/04/20 03:25 Blood Pressure 123/75 12/04/20 03:25 Pulse Oximetry 100 12/04/20 03:25 Temperature 98.1 F 12/04/20 03:25 Pulse Rate 68 12/04/20 04:01 Respiratory Rate 11 L 12/04/20 04:01 Blood Pressure 108/66 12/04/20 04:01 Pulse Oximetry 100 12/04/20 04:18 Lab Data Result diagrams: 12/04/20 03:44 12/04/20 04:10 Labs: Lab Results 12/04/20 12/04/20 12/04/20 Range/Units 03:44 04:10 04:10 WBC 8.3 (4.5-10.0) K/mm3 RBC 4.61 (4.2-5.4) M/mm3 Hgb 13.7 (12.0-15
== END 2020-12-04 05:47 | disposition home or self-care (01) ==
PROVIDERS: Emergency Provider Emergency Medicine; PCP Physician Assistant
DX: K80.50 Calculus of bile duct without cholangitis or cholecystitis without obstruction (principal); R94.31 Abnormal electrocardiogram [ECG] [EKG]
CPT/HCPCS: 36415; 71046; 80048; 80076; 81025; 83690; 84484; 85025; 85610; 85730; 93005; 99284

== ENCOUNTER 2021-01-28 09:11 | Outpatient (CLI) | payer OTHER, SELFPAY ==
--- NOTE | ~2021-01-28 | US_ITS ---
EXAMINATION: US right upper quadrant EXAM DATE: 01/28/2021 09:42 INDICATION: Right upper quadrant pain. TECHNIQUE: Multiple grayscale and Doppler images of the abdomen right upper quadrant were obtained (b y a technologist who performed the scan) and subsequently reviewed. There is no prior study for marciano schuster. FINDINGS: The pancreatic head and body are normal in appearance. The pancreatic tail is not visualized. The l iver has normal echogenicity and contour. There are no focal liver lesions identified. There is no evidence of intrahepatic biliary duct dilation. Portal venous flow was seen in the hepatopedal, nor mal direction and has normal Doppler waveform. No right-sided hydronephrosis. Common bile duct measures 4 mm, which is normal. The gallbladder wall is normal in thickness, with ex pected amount of distention. No sonographic evidence of pericholecystic fluid. There is cholelithia sis. Technologist performing exam reports patient did not demonstrate sonographic Hannon's sign. P elena note that this sign is less reliable in patients who have received pain medication. IMPRESSION: 1. Cholelithiasis. Reviewed, dictated and finalized at location D. IMPRESSION: 1. Cholelithiasis.
== END 2021-01-28 09:12 | disposition home or self-care (01) ==
LOC: ANHIMG 09:17
PROVIDERS: PCP Physician Assistant; Visit Provider Physician Assistant
DX: R10.11 Right upper quadrant pain (principal); K80.20 Calculus of gallbladder without cholecystitis without obstruction
CPT/HCPCS: 76705

== ENCOUNTER 2021-03-07 18:19 | Emergency (ER) | payer OTHER, SELFPAY ==
[2021-03-07 18:21] VITALS: BP 130/77; PULSE 64; RESP 12; TEMP 36.1; O2SAT 100
[2021-03-07 19:01] LABS: Add Urine Microscopic? YES; Appearance Urine Cloudy (Clear); Bacteria Urine Trace /hpf; Bilirubin Urine Negative (Negative); Blood Urine 2+ (Negative); Color Urine Yellow (Yellow); Glucose Urine UA Negative (Negative); Ketones Urine Negative (Negative); Leukocyte Esterase Ur Negative LEU/UL (Negative); Mucus Urine Rare /lpf; Nitrate Urine Negative (Negative); Protein Urine Negative (Negative); Specific Grav Ur 1.021 (1.001-1.035); Squamous Epithelial Cell Urine Few /hpf (Few); Urobilinogen Urine Negative mg/dL (<2.0); WBC Urine 0-3 /hpf
[2021-03-07 19:02] LABS: Basophils Absolute Auto 0.1 K/mm3 (0.0-0.1); Basophils Percent Auto 0.7 % (0.2-1.2); Eosinophils Absolute Auto 0.1 K/mm3 (0-0.3); Eosinophils Percent Auto 1.6 % (0-4.4); Hematocrit 39.2 % (37.0-47.0); Hemoglobin 13.5 g/dL (12.0-15.0); Immature Granulocyte Absolute 0.02 K/mm3 (0.00-0.031); Immature Granulocyte Percent A 0.2 % (0-0.5); Lymphocytes Absolute Auto 3.43 K/mm3 (0.9-3.2); Lymphocytes Percent Auto 41.3 % (18.3-44.2); Mean Corpuscular HGB Conc 34.4 g/dl (32-36); Mean Corpuscular Hemoglobin 30.3 pg (26-34); Mean Corpuscular Volume 87.9 fl (80-100); Mean Platelet Volume 9.8 fl (7.4-10.4); Monocytes Absolute Auto 0.6 K/mm3 (0.1-0.6); Neutrophils Absolute Auto 4.1 K/mm3 (1.3-6.7); Neutrophils Percent Auto 49.2 % (45.5-73.1); Platelet Count Result 308 k/mm3 (150-375); Red Blood Count 4.46 M/mm3 (4.2-5.4); Red Cell Distribution Width 12.3 % (11.5-14.5); White Blood Count 8.3 K/mm3 (4.5-10.0)
[2021-03-07 19:56] LABS: Alanine Aminotransferase 14 U/L (4-35); Albumin Level 4.7 g/dL (3.5-5.1); Alkaline Phosphatase 78 U/L (38-126); Anion Gap 8 mmol/L (8-16); Aspartate Amino Transferase 24 U/L (14-36); Bilirubin,Total 0.2 mg/dL (0.2-1.3); Blood Urea Nitrogen 13 mg/dL (7-17); Calcium 9.4 mg/dL (8.4-10.2); Carbon Dioxide 24 mmol/L (22-30); Chloride 104 mmol/L (98-107); Estimated CRCL calculation 107 ml/min; Estimated Glomerular Filt Rate > 60; Glucose 100 mg/dL (65-110); Lipase 80 U/L (23-300); Potassium 4.2 mmol/L (3.4-5.0); Sodium 136 mmol/L (137-145)
== END 2021-03-08 03:43 | disposition left against medical advice (07) ==
PROVIDERS: Emergency Provider Emergency Medicine; PCP Physician Assistant
DX: R52 Pain, unspecified (principal)
CPT/HCPCS: 36415; 80053; 81001; 81025; 83690; 85025; 99199

== ENCOUNTER 2021-03-09 12:17 | Emergency (ER) | payer OTHER, SELFPAY ==
--- NOTE | ~2021-03-09 | US_ITS ---
EXAMINATION: US abdomen limited DATE: 03/09/2021 13:32 INDICATION: Right upper quadrant abdominal pain. TECHNIQUE: Multiple grayscale and Doppler ultrasound images of the abdomen were obtained. COMPARISON: Ultrasound 01/28/2021, CT abdomen and pelvis 03/29/16 FINDINGS: The visualized portions of the head and body of the pancreas are normal. The liver is alexx l without focal lesion. No liver surface nodularity. There is normal flow in main portal vein. The ga llbladder is normal in size and contains gallstones. No gallbladder wall thickening. There is a posit myrna sonographic Hannon sign. The common duct is normal and measures 5 mm. IMPRESSION: 1. Cholelithiasis and positive sonographic Hannon sign, but no gallbladder wall thickening or gallbla dder distention to suggest acute cholecystitis. If clinical suspicion for acute cholecystitis is high , consider hepatobiliary scintigraphy. Reviewed, dictated and finalized at location B. L SALES MANAGER IMPRESSION: 1. Cholelithiasis and positive sonographic Hannon sign, but no gallbladder wall thickening or gallbladder distention to suggest acute cholecystitis. If clinic al suspicion for acute cholecystitis is high, consider hepatobiliary scintigrap hy.
--- NOTE | ~2021-03-09 | CT_ITS ---
EXAMINATION: CT abdomen pelvis w con EXAM DATE: 03/09/2021 14:48 INDICATION: Nausea vomiting diarrhea, left-sided abdominal pain. History gallstones. TECHNIQUE: Spiral CT of the abdomen and pelvis was performed following intravenous injection of 100 m L Omnipaque 350. Axial, coronal and sagittal images of the abdomen and pelvis were reviewed. The do se-length product (DLP) for this examination was 480.12 mGy-cm. The exposure was tailored according to patient size (auto mA exposure control), and iterative reconstruction (ASIR) was used as additiona l dose reduction technique. Comparison is made to prior examination from 03/29/2016. FINDINGS: The liver, spleen, adrenal glands and pancreas are unremarkable. Gallbladder is unremarkab le. No biliary obstruction. Portal and splenic veins are patent. Kidneys enhance symmetrically. T here is no hydronephrosis. The uterus is retroverted and morphologically normal. The bladder is u nremarkable. There is no retroperitoneal or pelvic lymphadenopathy. The appendix is normal. The stomach and small bowel are unremarkable. There is expected amount of c olonic stool. No free intraperitoneal gas. The heart is normal in size. There are no pericardial or pleural effusions. The lung bases are unremarkable. The bones are unremarkable. IMPRESSION: 1. No acute intra-abdominal findings. Reviewed, dictated and finalized at location A. TH EDUCATION ASSISTANT
[2021-03-09 12:20] VITALS: BP 134/76; PULSE 112; RESP 18; TEMP 37.2; O2SAT 100
[2021-03-09 12:53] LABS: Basophils Percent Auto 0.2 % (0.2-1.2); Eosinophils Absolute Auto 0.2 K/mm3 (0-0.3); Eosinophils Percent Auto 1.1 % (0-4.4); Hematocrit 44.1 % (37.0-47.0); Hemoglobin 15.3 g/dL (12.0-15.0); Immature Granulocyte Absolute 0.05 K/mm3 (0.00-0.031); Immature Granulocyte Percent A 0.3 % (0-0.5); Lymphocytes Absolute Auto 1.05 K/mm3 (0.9-3.2); Lymphocytes Percent Auto 7.3 % (18.3-44.2); Mean Corpuscular HGB Conc 34.7 g/dl (32-36); Mean Corpuscular Hemoglobin 30.2 pg (26-34); Mean Corpuscular Volume 87.2 fl (80-100); Mean Platelet Volume 9.4 fl (7.4-10.4); Monocytes Absolute Auto 0.7 K/mm3 (0.1-0.6); Monocytes Percent Auto 4.5 % (2.6-8.5); Neutrophils Absolute Auto 12.4 K/mm3 (1.3-6.7); Neutrophils Percent Auto 86.6 % (45.5-73.1); Platelet Count Result 295 k/mm3 (150-375); Red Blood Count 5.06 M/mm3 (4.2-5.4); Red Cell Distribution Width 12.3 % (11.5-14.5); White Blood Count 14.4 K/mm3 (4.5-10.0)
[2021-03-09 13:05] LABS: Alanine Aminotransferase 16 U/L (4-35); Albumin Level 5.2 g/dL (3.5-5.1); Alkaline Phosphatase 89 U/L (38-126); Anion Gap 15 mmol/L (8-16); Aspartate Amino Transferase 25 U/L (14-36); Bilirubin,Total 0.6 mg/dL (0.2-1.3); Blood Urea Nitrogen 10 mg/dL (7-17); Calcium 10.1 mg/dL (8.4-10.2); Carbon Dioxide 22 mmol/L (22-30); Chloride 103 mmol/L (98-107); Estimated CRCL calculation 92 ml/min; Estimated Glomerular Filt Rate > 60; Glucose 108 mg/dL (65-110); Lipase 61 U/L (23-300); Potassium 3.9 mmol/L (3.4-5.0); Sodium 140 mmol/L (137-145)
[2021-03-09 13:06] LABS: Add Urine Microscopic? YES; Bilirubin Urine Negative (Negative); Blood Urine 3+ (Negative); Color Urine Yellow (Yellow); Glucose Urine UA Negative (Negative); Ketones Urine 1+ mg/dL (Negative); Leukocyte Esterase Ur Negative LEU/UL (Negative); Nitrate Urine Negative (Negative); Protein Urine Negative (Negative); Urobilinogen Urine 0.2 mg/dL (<2.0); pH Urine 5.5 (5.0-9.0)
[2021-03-09 13:34] LABS: Appearance Urine Sl Cloudy (Clear)
[2021-03-09 13:37] LABS: Bacteria Urine 1+ /hpf; Squamous Epithelial Cell Urine Moderate /hpf (Few); WBC Urine 0-3 /hpf (0-3)
[2021-03-09 13:38] LABS: Mucus Urine Moderate /lpf
[2021-03-09] MEDS: SODIUM CHLORIDE 0.9% IV 1,000 ML 999 ML IV CONT (14:00)
[2021-03-09] MEDS: KETOROLAC 30 MG/ML VIAL (*BKC) IV PUSH (14:00)
[2021-03-09] MEDS: ONDANSETRON INJ 4 MG/2 ML VIAL IV PUSH (14:00)
[2021-03-09 15:30] LABS: Lactic Acid Reflex 0.8 mmol/L (0.7-2.1)
--- NOTE | 2021-03-09 15:39 | ED.GENADULT ---
HPI - General Adult General Chief complaint: Abdominal Pain Stated complaint: flank pain, nausea Time Seen by Provider: 03/09/21 12:33 Source: RN notes reviewed History of Present Illness HPI narrative: Patient presents to emergency department from home for abdominal pain. Patient states pain is been intermittent for the past 5 days pain is located in the epigastric and right upper quadrant radiates around to the right flank and then up into the shoulder blades pain is described as sharp and stabbing and associated with nausea patient states the pain is intermittent in nature she denies any fevers or chills chest pain shortness of breath diarrhea or any other symptoms. States she has been diagnosed with gallstones before in the past Related Data Allergies Allergy/AdvReac Type Severity Reaction Status Date / Time No Known Allergies Allergy Verified 12/04/20 03:29 Review of Systems Review of Systems: Gen.: Denies fevers or chills ENT: Denies congestion Respiratory: Denies shortness of breath or cough CV: Denies chest pain or palpitations GI: See HPI denies burning, urgency, frequency or hematuria Musculoskeletal: Denies back pain or muscle pain Neuro: Denies numbness, tingling, weakness or focal weakness Skin: Denies rash Except as documented, all other systems reviewed and negative PMFSH Past Medical History Medical History (normal spontaneous vaginal delivery) Surgical History Surgical History (Updated 12/04/20 @ 05:33 by Anmol Martinez MD) No pertinent past surgical history Family History Family History Grandparent Acute myocardial infarction Mother Diabetes mellitus Social History Social History Smoking status: Never smoker Substance use: never Gender identity (if verbalized by the patient): Female Spiritual care concerns: No Exam Narrative: APPEARANCE: No acute distress, nontoxic, resting in bed HEENT: Normocephalic, atraumatic, OMM RESPIRATORY: No respiratory distress, clear to auscultation bilaterally with no rhonchi wheezing or rales CARDIOVASCULAR: RRR s murmur ABDOMINAL: Soft nondistended tender palpation epigastric and right upper quadrant no tenderness left quadrant left lower quadrant right lower quadrant no rebound or guarding MUSCULOSKELETAl: Moves all extremities. No clubbing, cyanosis or edema. NEURO: Awake and alert. Following commands, speech normal, no focal deficits SKIN:: Warm, dry. Normal Color PSYCHIATRIC: Normal affect/mood Course Course Emergency Course: Reviewed old records Patient states pain is improved after Toradol still having some pain was going to give morphine the patient drove to the emergency department her self Discussed with Dr. Ramos presentation work-up at this time feels patient may be discharged with pain medication with follow-up as an outpatient. Recommends no antibiotics at this time Patient states that they are feeling much better at this time. States abdominal pain has improved. Repeat abdominal exam shows the patient's abdomen to be soft with no surgical abdomen present discussed with patient results of workup and diagnosis. Discussed need for follow-up with primary care physician, reasons to return to the emergency department in proper use of medication. Patient understands and agrees to current treatment plan Vital Signs Vital signs: Vital Signs Temperature 98.9 F 03/09/21 12:20 Pulse Rate 112 H 03/09/21 12:20 Respiratory Rate 18 03/09/21 12:20 Blood Pressure 134/76 03/09/21 12:20 Pulse Oximetry 100 03/09/21 12:20 Temperature 98.9 F 03/09/21 12:20 Pulse Rate 112 H 03/09/21 12:20 Respiratory Rate 18 03/09/21 12:20 Blood Pressure 134/76 03/09/21 12:20 Pulse Oximetry 100 03/09/21 12:20 Medical Decision Making NII Narrative Medi
--- NOTE | 2021-03-09 15:50 | PC.NURSE ---
Pt states that she is driving home after discharge, charge account authorizer Nuvia and doctor agrees that is not safe, Dr. Mclean will send pt home with medications for pain, informed pt , she is aware
[2021-03-09 16:17] VITALS: BP 114/76; PULSE 75; RESP 18; O2SAT 100
== END 2021-03-09 16:18 | disposition home or self-care (01) ==
PROVIDERS: Emergency Provider Emergency Medicine; PCP Physician Assistant
DX: K80.20 Calculus of gallbladder without cholecystitis without obstruction (principal)
CPT/HCPCS: 36415; 74177; 76705; 80053; 81001; 81025; 83605; 83690; 85025; 96361; 96374; 96375; 99284; J1885; J2405; J7030; Q9967

== ENCOUNTER 2021-04-06 10:25 | Outpatient (CLI) | payer OTHER, SELFPAY ==
[2021-04-06 10:57] LABS: Alanine Aminotransferase 18 U/L (4-35); Albumin Level 5.1 g/dL (3.5-5.1); Alkaline Phosphatase 73 U/L (38-126); Amylase 91 U/L (30-110); Aspartate Amino Transferase 24 U/L (14-36); Bilirubin,Total 0.5 mg/dL (0.2-1.3); Lipase 93 U/L (23-300)
== END 2021-04-06 10:26 | disposition home or self-care (01) ==
PROVIDERS: PCP Physician Assistant; Visit Provider Surgery
DX: Z01.812 Encounter for preprocedural laboratory examination (principal); K80.10 Calculus of gallbladder with chronic cholecystitis without obstruction
CPT/HCPCS: 36415; 80076; 82150; 83690; 86850; 86900; 86901

== ENCOUNTER 2021-04-07 02:14 | Day surgery (SDC) | payer OTHER, SELFPAY ==
[2021-04-04 10:57] VITALS: BMI 29.2
--- NOTE | 2021-04-04 11:06 | PC.NURSE ---
Report to the Outpatient Waiting Room, entrance under the green pavilion located off [facility], at time 8:30 on date 04/07/21. OR Time: 10:30. - You and your visitor will be asked a series of questions to screen for COVID 19 for your protection. - A mask is required within the hospital. - Only one visitor is allowed at this time. Patient visitors will be guided where to wait when not with patient. Preoperative COVID Testing Requirements: No COVID Test needed if: (proof is required; if not received patient will have Rapid Test prior to entry) - Patient has received COVID Vaccine at least 14 days prior to procedure date or - Patient has positive COVID test result within last 90 days of surgery date. COVID Test needed if above criteria is not met If not COVID vaccinated a COVID test must be conducted within 72 hours of surgery and patient is asked to isolate self from time of testing until procedure. You will go to the [facility] for your COVID testing. The [facility] is located at the corner of [address] [facility]. You will only be called if COVID results are positive and your surgeon may reschedule your elective surgery date. Patients may have clear liquids (water, carbonated beverages, clear teas, apple juice) until 3 hours prior to surgery (7:30) with a maximum of 20 ounces. - No food from midnight until time of surgery - Infants may have breast milk until 4 hours before surgery, infant formula 6 hours prior to surgery. - Children will be allowed to drink immediately following surgery. If applicable, please bring a bottle or sippy cup to assist with drinking. Juice, water, soda, and popsicles are readily available. For infants on formula, please bring formula the day of surgery. Pacifiers are allowed. Take the following medications with a SIP of water the morning of surgery: CONTROL PILL Medications to discontinue per physician: N/A Date to take last dose: N/A Please no make-up, nail lithuanian, hairspray, perfume, deodorant, or body powder the day of surgery. No jewelry (including any body piercings) or valuables the day of surgery, leave them at home. Please take a shower or bath the night before, or the morning of, surgery with an antibacterial soap. Wear comfortable, loose fitting clothing. HIBICLENS SHOWER - Jewelry must be removed prior to entering the operating room. Rings and piercings that are not removed may be cut off. - The hospital will not accept responsibility for valuables. - Please leave all valuables, including medications, at home the day of surgery. If you are going home after surgery, a licensed swing driver must drive you home. - NO public transportation without another adult. - We recommend that an adult stay with you for 24 hours following discharge. - We also recommend that you do not drive, make important decision, drink alcoholic beverages, or take any drugs that were not prescribed by your health care provider for at least 24 hours after your discharge time. Follow any additional instructions given to you from your surgeon. Telephone instructions given to PILAR RIVERA and asked if any additional questions and then verbalized understanding. Patient advised to call surgeon office or pre surgery nurse liaison [phone] if any additional questions.
[2021-04-07] VITALS (12 sets, daily range): BP systolic 108–128; BP diastolic 56–78; PULSE 59–72; RESP 12–16; TEMP 36.4–36.7; O2SAT 88–100
--- NOTE | 2021-04-07 08:53 | WPDANESEPPF ---
Anes - Initial Pre Proc Eval Procedure: Operation Date: 04/07/21 10:30 Proposed Procedures p Laparoscopic Cholecystectomy - Yovani Ramos MD Date/Time: 04/07/21 08:53 Surgeon: Yovani Ramos MD Pre Op Diagnosis: chronic cholecystitis with stones Patient Data Age: 30 Gender: F Height: 1.52 m Weight: 68 kg Allergies Allergy/AdvReac Type Severity Reaction Status Date / Time No Known Allergies Allergy Verified 04/04/21 10:56 Home Medications Medication Instructions Recorded Confirmed Type norethindrone (contraceptive) 0.35 mg PO DAILY #84 tablet 07/08/19 04/04/21 Rx ibuprofen [IBU] 600 mg PO Q6H PRN #20 tablet 03/09/21 04/04/21 Rx Patient hx anesthesia problems: none Family hx anesthesia problems: none Results Review: All pre-operative results and documents have been reviewed as part of the pre-operative evaluation. [facility] Past Medical History Medical History (Updated 04/07/21 @ 08:53 by Girish Lolyd MD) Anxiety GERD (gastroesophageal reflux disease) High cholesterol (normal spontaneous vaginal delivery) Surgical History Surgical History No pertinent past surgical history Family History Family History Grandparent Acute myocardial infarction Mother Diabetes mellitus Social History Social History Smoking status: Never smoker Alcohol intake: never Substance use: never Substance use type: does not use Living arrangements: with family Gender identity (if verbalized by the patient): Female Spiritual care concerns: No Anes - Eval Final PreProcedure Day of Procedure 04/07/21 08:53 Patient weight: overweight Heart: regular rate and rhythm Lungs: clear to auscultation and normal air movement Airway: Mallampati scale class II Neurological: alert and oriented Last oral intake: >/= 8 hours ASA classification: II Emergent: no Anesthetic plan: proceed Anesthesia type and monitoring: general ETT Results Review: All pre-operative results and documents have been reviewed as part of the pre-operative evaluation. Informed Consent: The patient's anesthetic plan and its attendant risks and benefits were discussed with the patient/family/POA. Questions were solicited and answers provided to the satisfaction of the patient/family/POA.
[2021-04-07] MEDS: ACETAMINOPHEN 500 MG TABLET 1000 MG PO (09:05)
[2021-04-07] MEDS: LACTATED RINGERS 1,000 ML 30 ML IV CONT ×3 (09:10→13:51)
[2021-04-07] MEDS: KETOROLAC 15 MG/ML VIAL (*BKC) IV PUSH (09:10)
--- NOTE | 2021-04-07 10:07 | WPDHPUPDATE1 ---
History and Physical Update Update Date/Time: 04/07/21 10:07 History and Physical has been reviewed, including an updated exam of the patient. There are NO changes in the patient's condition. Risks, benefits, and alternatives have been discussed and questions answered. Patient agrees to proceed with procedure.
[2021-04-07] MEDS: ceFAZolin 2 GM/D5W 50 ML 2 GM/50 ML BAG IVPB (10:30)
[2021-04-07] MEDS: BUPIVACAINE HCL 0.5% PF 30 ML VIAL INFILTRATE (10:47)
[2021-04-07] MEDS: ONDANSETRON INJ 4 MG/2 ML VIAL IV PUSH (11:45)
--- NOTE | 2021-04-07 11:59 | W.PM.PROC2 ---
Procedure Note - Detailed Date of Procedure 04/07/21 Pre-op Diagnosis chronic cholecystitis with stones Post-op Diagnosis same Procedure Performed Laparoscopic cholecystectomy Surgeon Yovani Ramos MD Slotter Operator Helper Servando TIRADO Anesthesia general and local (0.5% Marcaine) Indications Patient has had episodes of right upper quadrant postprandial pain after eating fatty foods. Gallbladder imaging showed gallstones. She is taken to surgery now for laparoscopic cholecystectomy. Findings Chronic inflammation, multiple stones, thickened gallbladder wall, normal appearing liver, no biliary ductal dilatation. Description of Procedure Patient was taken to surgery and induced into general anesthesia. The abdomen is prepped and draped. Trocars were placed in the usual fashion using 0.5% Marcaine and applied Medical optical trocars. A 5 mm camera was used. The gallbladder was decompressed with a laparoscopic aspirator. The cholecystotomy was closed with a Vicryl endoloop. The gallbladder was retracted anterosuperiorly. Adhesions to the gallbladder were taken down using blunt dissection and minimal cautery. Eventually the infundibulum of the gallbladder was exposed. Traction was placed on the infundibulum and dissection was carried out in the cholecystohepatic triangle. The cystic duct and cystic artery were dissected out very carefully. The gallbladder was dissected off the liver at its lower 3rd. Critical view was achieved. We then securely clipped and divided the cystic duct and cystic artery. The gallbladder was then further dissected from its attachments to the liver. Some cautery was used on the gallbladder fossa to achieve good hemostasis. Eventually the gallbladder was freed completely from the liver. It was placed in an Endo-Catch bag and retrieved through the 10 11 epigastric trocar. The trocar was then replaced. We reviewed the right upper quadrant and gallbladder fossa. Repeated irrigation and suctioning were carried out. Some additional cautery was used as well. All looked good with no evidence of bleeding or bile leakage. We then evacuated CO2 and removed the trocar sleeves. Skin wounds were closed with 4-0 Monocryl skin suture. The epigastric trocar site was closed with 0 Vicryl at the fascial level as well. The patient was awakened and taken to recovery in good condition. Sponge and needle counts were correct x2. Estimated Blood Loss -5 Drains No Packing No Pathology yes (Gallbladder) Complications No immediate complications Condition stable Disposition PACU
[2021-04-07] MEDS: HALOPERIDOL LACTATE 5 MG/ML VIAL 1 MG IV PUSH (12:54)
[2021-04-07] MEDS: SCOPOLAMINE 1.5 MG PATCH TRANSDERM (12:54)
--- NOTE | 2021-04-07 13:12 | SUR.PHASEII ---
PATIENT STATES SHE FEELS DIZZY AND FAINT. HEAD LOWERED. COOL COMPRESSES TO NECK AND FOREHEAD. SATS TO 88%; 3 LITERS PER NC PLACED. HR AND BP STABLE. MOM AT BEDSIDE.
--- NOTE | 2021-04-07 13:20 | SUR.PHASEII ---
PATIENT NO LONGER FEELS DIZZY/NAUSEATED. HOB RAISED TO 45 DEGREES; OXYGEN DISCONTINUED. SATS 100%.
== END 2021-04-07 15:22 | disposition home or self-care (01) ==
PROVIDERS: PCP Physician Assistant; Visit Provider Surgery
PROC: 0FT44ZZ Resection of Gallbladder, Percutaneous Endoscopic Approach (ICD-10-PCS; CPT 47562; principal; 2021-04-07 10:30)
DX: K80.10 Calculus of gallbladder with chronic cholecystitis without obstruction (principal)
CPT/HCPCS: 47562; 88304; A9270; C1713; J0690; J1100; J1170; J1630; J1885; J2250; J2405; J2704; J3010; J7120

== ENCOUNTER 2021-07-20 09:42 | Outpatient (CLI) | payer OTHER, SELFPAY ==
--- NOTE | 2021-07-20 | ECG_ITS ---
Measurements Intervals [place] Rate: 61 P: 16 IN: 141 QRS: 14 QRSD: 76 T: 17 QT: 369 QTc: 374 Interpretive Statements SINUS RHYTHM COMPARED TO ECG 12/04/2020 03:21:50 NO SIGNIFICANT CHANGES Electronically Signed On 07-20-2021 14:24:46 CDT by Maya Junior M.D.
--- NOTE | 2021-07-22 12:29 | WPDHOLTEREM ---
Holter/Event Monitor Holter/Event Monitor Date of procedure: 07/20/21 Holter/Event Procedure: 24 Hr Holter Monitor Indications: Palpitations Conclusion: 1. 24 hour holter monitor on 07/20/21. 2. Underlying rhythm is sinus rhythm. HR range 49-145 bpm; average HR 73 bpm. 3. There are 31 premature supraventricular complexes and 2 supraventricular couplets. No supraventricular tachycardia 4. There is 1 premature ventricular complex. No ventricular tachycardia. 5. No sinoatrial or atrioventricular blocks. No significant pauses greater than 2 seconds. 6. No symptoms available for correlation.
== END 2021-07-20 09:43 | disposition home or self-care (01) ==
LOC: ANHCARD 09:44
PROVIDERS: PCP Physician Assistant; Visit Provider Physician Assistant
DX: R00.2 Palpitations (principal)
CPT/HCPCS: 93005; 93225; 93226